=== PATIENT | female | born 1950 | race Caucasian/White ===

== ENCOUNTER 2025-06-09 20:06 | Emergency (ER) | payer BC, MEDICARE ==
[~2025-06-09] VITALS: Ht 160 cm; Wt 73.0 kg
[2025-06-09 20:10] VITALS: O2SAT 97
[2025-06-09 21:40] LABS: BASOPHILS % 0.7 % (0.0-2.0); EOSINOPHILS % 1.9 % (0.0-5.0); HEMATOCRIT. 36.0 % (36.0-48.0); HEMOGLOBIN. 11.3 g/dL (12.0-16.0); LYMPHOCYTES % 29.6 % (20.0-50.0); MEAN PLATELET VOLUME 8.0 fl (7.4-10.4); MONOCYTES % 8.0 % (2.0-8.0); NEUTROPHILS % 59.8 % (40.0-76.0); PLATELET 391 x1000/uL (130-400); RED BLOOD CELL COUNT 4.56 mill/uL (4.2-5.4); RED CELL DISTRIBUTION WIDTH 17.6 % (11.6-14.6)
[2025-06-09] MEDS: SODIUM CHLORIDE 0.9% 1,000 ML IV ONE (21:50)
[2025-06-09 22:06] LABS: CREATININE 0.7 mg/dL (0.6-1.0)
[2025-06-09 22:07] LABS: UREA NITROGEN BLOOD 10 mg/dL (9-23)
[2025-06-09 22:08] LABS: ASPARTATE AMINOTRANSFERASE 12 IU/L (<34); TROPONIN I HIGH SENSITIVITY < 4 ng/L (3.0-34)
[2025-06-09 22:09] LABS: *AMPHETAMINES SCREEN URINE NEGATIVE (NEGATIVE)
[2025-06-09 22:09] LABS: BILIRUBIN DIRECT 0.2 mg/dL (<=3.0); BILIRUBIN TOTAL 0.8 mg/dL (0.1-1.0); PROTEIN TOTAL 6.6 g/dL (6.0-8.3)
[2025-06-09 22:10] LABS: *BARBITURATES SCREEN URINE NEGATIVE (NEGATIVE); *BENZODIAZEPINES SCREEN URINE NEGATIVE (NEGATIVE); *COCAINE SCREEN URINE NEGATIVE (NEGATIVE); METHADONE URINE SCREEN NEGATIVE (NEGATIVE); OPIATES URINE SCREEN NEGATIVE (NEGATIVE)
[2025-06-09 22:11] LABS: CANNABINOID URINE SCREEN NEGATIVE (NEGATIVE); ECSTASY MDMA SCREEN URINE NEGATIVE (NEGATIVE); PHENCYCLIDINE URINE SCREEN NEGATIVE (NEGATIVE)
[2025-06-09] MEDS ORDERED: LISI20TA31 MT (22:19)
[2025-06-09 23:06] LABS: CLARITY URINE CLEAR (CLEAR); COLOR URINE YELLOW (YELLOW); GLUCOSE URINE NEGATIVE (NEGATIVE); KETONES URINE 1+ (NEGATIVE); LEUKOCYTE ESTERASE URINE NEGATIVE (NEGATIVE); NITRITE URINE NEGATIVE (NEGATIVE); OCCULT BLOOD URINE NEGATIVE (NEGATIVE); PH URINE 6.0 (4.5-8.0); PROTEIN URINE NEGATIVE (NEGATIVE); SPECIFIC GRAVITY URINE 1.013 (1.005-1.030); UROBILINOGEN URINE 0.2 E.U./dL (0.2-1.0)
[2025-06-10] MEDS: LISINOPRIL 20MG TABLET PO SCH (09:00)
[2025-06-10] MEDS: ACETAMINOPHEN 500MG TABLET PO ONE (23:06)
[2025-06-11] MEDS: DOCUSATE SODIUM 250MG CAPSULE PO PRN (00:10)
[2025-06-11 02:00] VITALS: BP 160/78; PULSE 74; RESP 16; TEMP 36.7; O2SAT 98
[2025-06-13 06:10] LABS: HSV TYPE 2 SPECIFIC AB IGG Non Reactive (Non Reactive)
== END 2025-06-11 03:04 ==
LOC: ER 20:06 → CANBEDREQ 22:43 → ER 06-11 03:04 → CMPBEDREQ 06-11 08:08
DX: Z73.6 Limitation of activities due to disability (principal); I10 Essential (primary) hypertension; J45.909 Unspecified asthma, uncomplicated; R41.0 Disorientation, unspecified; Z79.899 Other long term (current) drug therapy; Z88.3 Allergy status to other anti-infective agents; Z20.822 Contact with and (suspected) exposure to COVID-19
CPT/HCPCS: 86695; 86696; 80076; 80305; 80048; 81003; 80307; 80329; 80320; 82140; 82550; 83880; 85025; 84484; 36415; 71045 ×2; 70450; 96360; 99285; 87426; J7030; G0480